=== PATIENT | male | born 1975 | race Caucasian/White ===

== ENCOUNTER 2017-04-19 08:22 | Emergency (ER) | payer OTHER ==
[2017-04-19 08:26] VITALS: BP 139/76; BMI 23.6
[2017-04-19] MEDS ORDERED: XYLOCAINE 1 % (PLAIN) ONE (08:40)
[2017-04-19] MEDS ORDERED: XYLOCAINE 2% and EPINEPHRINE 1:100,000 ONE (08:40)
--- NOTE | 2017-04-19 08:59 | RAD ---
HISTORY: Laceration Study: Left forearm two view Comparison: None Findings: There is soft tissue swelling in the area of the mid 4 on likely related to the laceration described in the history. No radiopaque soft tissue foreign body is identified. The radius and ulna are intac t. IMPRESSION: No radiopaque foreign body identified in the area of the patient's laceration No bony abnormality Reported By:
[2017-04-19] MEDS ORDERED: ADACEL TDaP IM ONE ×2 (09:20→09:21)
[2017-04-19] MEDS ORDERED: HYDROGEN PEROXIDE 3% ONE (09:21)
[2017-04-19] MEDS ORDERED: NEOSPORIN OINT TOP ONE (09:21)
[2017-04-19] MEDS ORDERED: NEOSPORIN OINT ONE (09:21)
--- NOTE | 2017-04-19 09:26 | DR.GENAD ---
HPI - PCP Primary Care Physician: NFD - HPI Comment HPI Comment: PATIENT WAS PUTTING WINDOW IN [employer] WHEN GLASS CUT HIM. TD NOT UTD. - Complaint/Symptoms Chief Complaint Doctors Comments: CUT LEFT FOREARM IN 2 AREA WITH GLASS. Chief Complaint:: PATIENT STATED THAT HE WAS THROWING AWAY A WINDOW AND THEY GLASS CUT HIS LEFT ARM - Nurses notes reviewed Nurses Notes Review: Yes - Source History Provided: Patient - Mode of Arrival Mode of Arrival: Ambulatory - Timing Onset of Chief Complaint: 04/19/17 Came on: Suddenly - Duration Duration: Constant Duration: Minutes - Severity Severity: Moderate PMH - PMH Past Medical History: Yes Past Medical History: Diabetes Past Surgical History: No - Family History History of Family Medical Conditions: Yes Family Medical History: Diabetes Mellitus - Social History Does patient currently use any type of tobacco product: Yes Have you used tobacco products in the last 12 months: Yes Type of Tobacco Use: Cigarettes Does any household member use tobacco: No Alcohol Use: Occasionally Do you use any recreational Drugs:: No Lives With: Family Lives Where: Home - infectious screening In the last 2 months have you had wt loss of >10#?: NO Have you had fever, night sweats or hemotysis?: No Have you traveled outside the country in the last 6 months?: No Isolation: Standard ROS - Review of Systems Constitutional: No Symptoms Reported Eyes: No Symptoms Reported ENTM: No Symptoms Reported Respiratoy: No Symptoms Reported Cardiovascular: No Symptoms Reported Gastrointestinal/Abdominal: No Symptoms Reported Genitourinary: No Symptoms Reported Neurological: No Symptoms Reported Musculoskeletal: Left, Hand Integumentary: Wound (laceration lt forearm) Hematologic/Lymphatic: No Symptoms Reported Endocrine: No Symptoms Reported All Other Systems: Reviewed and Negative PE - Vital Signs Vitals: Temperature 97.1 F Pulse Rate 84 Respiratory Rate 21 Blood Pressure 139/76 O2 Sat by Pulse Oximetry 98 - General Limitations: No Limitations General Appearance: Alert - Head Head Exam: Normal Inspection - Eyes Eye exam: Normal Appearance - ENT ENT Exam: Normal External Ear Exam External Ear Exam: Normal External Inspection TM/Canal Exam: Bilateral Normal Nose Exam: Normal Nose Exam Mouth Exam: Normal Inspection Throat Exam: Normal Inspection - Neck Neck Exam: Normal Inspection - Chest Chest Inspection: Normal Inspection - Respiratory Respiratory Exam: Normal Lung Sounds Bilat Respiratory Exam: Bilateral Clear to Auscultation - Cardiovascular Cardiovascular Exam: Regular Rate - Abdominal Exam Abdominal Exam: Normal Inspection - Extremities Extremities Exam: Tenderness (3cm N 2CM LEFT FOREARM) - Back Back Exam: Normal Inspection - Neurologic Neurological Exam: Alert - Psychiatric Psychiatric Exam: Normal Affect, Normal Mood - Skin Skin Exam: Erythema MDM - Differential Diagnosis Differential Diagnosis: LACERATION LEFT FOREARM. Course - Treatment Treatment: SEE ORDERS.LAC REPAIRED, TD GIVEN IN ED. - Reevaluation 1st: Improved - Education/Counseling Education/Counseling: Patient, Education Educated On: Diagnosis, Needs for Follow Up ROR - XRAY XRAY Interpreted by: Radiologist XRAY Findings: REPORT DISCUSS WITH PATIENT. - Diagnosis Discharge Problem: Laceration of forearm, left - Discharge Plan Condition: Stable Prescriptions: Cephalexin [Keflex Cap 500 mg] 500 mg PO BID #14 cap Ibuprofen [MOTRIN TAB 600 MG *] 600 mg PO TID PRN #20 tab PRN Reason: Pain/Inflammation - Follow ups/Referrals Follow ups/Referrals: NFD,None [Primary Care Provider] - 3 days - Instructions Instructions: Laceration Care, Adult, [id number] Additional Instructions: return to ed if worse. suture out in 7 to 10 days
== END 2017-04-19 09:47 | disposition home or self-care (01) ==
LOC: ER 08:36
PROC: 0XQ90ZZ Repair Left Upper Arm, Open Approach (ICD-10-PCS; principal; 2017-04-19)
DX: S81.812A Laceration without foreign body, left lower leg, initial encounter (principal); W25.XXXA Contact with sharp glass, initial encounter; Y92.9 Unspecified place or not applicable
CPT/HCPCS: 12002; 73090; 90471; 99282; J2001

== ENCOUNTER 2017-04-26 13:03 | Emergency (ER) | payer OTHER ==
[2017-04-26 13:06] VITALS: BP 138/78; BMI 24.3
--- NOTE | 2017-04-26 13:50 | DR.GENAD ---
HPI - PCP Primary Care Physician: none - Complaint/Symptoms Chief Complaint Doctors Comments: Patient sustained left forearm injury one week ago, sutured and advised to follow for suture removal. Upon examination of left forearm the arm was swollen and non erythematous with sutures in place. Ultrasound of the extremity revealed: A 4.3cm solid appearing mass seen just beneath the laceration site along the left forearm which could represent a hematoma vs phlegmonous inflammatory changes or mass of other etiology. Surgical follow up recommended. Sutures were removed w/o complication. Chief Complaint:: left arm pain pt came in to get stitches removed but complained of arm hurting and very swollen and warm to touch - Source History Provided: Patient - Mode of Arrival Mode of Arrival: Ambulatory - Timing Onset of Chief Complaint: 04/26/17 PMH - PMH Past Medical History: Yes Past Medical History: Diabetes Past Surgical History: No - Family History History of Family Medical Conditions: Yes Family Medical History: Diabetes Mellitus - Social History Does patient currently use any type of tobacco product: Yes Have you used tobacco products in the last 12 months: Yes Type of Tobacco Use: Cigarettes How many years tobacco product used: 20 Does any household member use tobacco: No Alcohol Use: Occasionally Do you use any recreational Drugs:: No Lives With: Alone Lives Where: Home - infectious screening In the last 2 months have you had wt loss of >10#?: NO Have you had fever, night sweats or hemotysis?: No Have you traveled outside the country in the last 6 months?: No Isolation: Standard PE - Vital Signs Vitals: Temperature 98 F Pulse Rate 94 Respiratory Rate 18 Blood Pressure 138/78 O2 Sat by Pulse Oximetry 99 - Diagnosis Discharge Problem: Visit for suture removal Traumatic hematoma of left forearm Qualifiers: Encounter type: subsequent encounter Qualified Code(s): S50.12XD - Contusion of left forearm, subsequent encounter - Discharge Plan Condition: Stable - Follow ups/Referrals Follow ups/Referrals: NFD,None [Primary Care Provider] - 3 days - Instructions
--- NOTE | 2017-04-26 14:51 | US ---
Indication: Status post foreign body removal with swelling Exam: Soft tissue extremity ultrasound. Technique: Transverse and longitudinal grayscale and color Doppler images were obtained of the left forearm, in the area of palpable abnormality. Findings: There is an elongated hypoechoic mass seen just beneath the skin along the left forearm, j ust deep to the laceration site. The area measures 4.3 x 3.7 x 2.7 cm and has lobular, irregular, ma rgins. There are moderate echoes throughout with through transmission. There is minimal blood flow s een around the area. No focal fluid collection is seen. Impression: 4.3 cm solid-appearing mass seen just beneath the laceration site along the left forearm which could represent a hematoma vs phlegmonous inflammatory changes or mass of other etiology. Rec ommend surgical followup. Reported By:
== END 2017-04-26 15:41 | disposition home or self-care (01) ==
LOC: ER 13:03
DX: S50.12XD Contusion of left forearm, subsequent encounter (principal); Z48.02 Encounter for removal of sutures; Y33.XXXA Other specified events, undetermined intent, initial encounter; Y92.9 Unspecified place or not applicable
CPT/HCPCS: 76881; 99282